=== PATIENT | male | born 1950 | race Caucasian/White ===

== ENCOUNTER 2016-12-10 13:05 | Emergency (ER) | payer BC, OTHER ==
[2016-12-10] MEDS ORDERED: Sodium Chloride 0.9% 2.5 ML Syringe FLUSH PRN (13:17)
[2016-12-10] MEDS ORDERED: Sodium Chloride 0.9% 10 ML Syringe FLUSH PRN (13:17)
--- NOTE | 2016-12-10 13:19 | EDM.PDOC ---
ED HPI GENERAL MEDICAL PROBLEM - General Chief Complaint: Neurological Problem Stated Complaint: SEIZURES Time Seen by Provider: 12/10/16 13:14 - History of Present Illness INITIAL COMMENTS - FREE TEXT/NARRATIVE: HISTORY AND PHYSICAL: History of present illness: Patient is a 66-year-old white male with history of known seizure disorder for which she's had several seizures in the past he's had an extensive workup per history and it was determined that he did not need to be on seizure medicines at this time he states they were not offered to him this was not a choice that he had made he presents today after having 2 generalized tonic-clonic seizure the first seizure last proximate to 3 minutes as did the second 1 it is unclear whether he had a lucid interval. Or not but it does not appear to be with a postictal period he was given Ativan en route due to anxiety per paramedics not for seizure he denies chest pain shortness breath or other concern. Review of systems: As per history of present illness and below otherwise all systems reviewed and negative. Past medical history: As per history of present illness and as reviewed below otherwise noncontributory. Surgical history: As per history of present illness and as reviewed below otherwise noncontributory. Social history: No reported history of drug or alcohol abuse. Family history: As per history of present illness and as reviewed below otherwise noncontributory. Physical exam: HEENT: Atraumatic, normocephalic, pupils reactive, negative for conjunctival pallor or scleral icterus, mucous membranes moist, throat clear, neck supple, nontender, trachea midline. Lungs: Clear to auscultation, breath sounds equal bilaterally, chest nontender. Heart: S1S2, regular, negative for clicks, rubs, or JVD. Abdomen: Soft, nondistended, nontender. Negative for masses or hepatosplenomegaly. Negative for costovertebral tenderness. Pelvis: Stable nontender. Genitourinary: Deferred. Rectal: Deferred. Extremities: Atraumatic, negative for cords or calf pain. Neurovascular unremarkable. Neuro: Awake, alert, oriented. Cranial nerves II through XII unremarkable. Cerebellum unremarkable. Motor and sensory unremarkable throughout. Exam nonfocal. Diagnostics: CBC CMP EKG chest x-ray UA CT brain EtOH or drug screen Therapeutics: Dilantin 1 g IV Impression: #1 seizure with known seizure disorder Definitive disposition and diagnosis as appropriate pending reevaluation and review of above. - Related Data Allergies Allergy/AdvReac Type Severity Reaction Status Date / Time No Known Allergies Allergy Verified 12/10/16 13:14 Home Meds: Home Meds . [No Known Home Meds] 12/10/16 [History] ED ROS GENERAL - Review of Systems Review Of Systems: ROS reveals no pertinent complaints other than HPI. ED EXAM, GENERAL - Physical Exam Exam: See Below (The dictation) Course - Vital Signs Last Recorded V/S: Last Vital Signs Temp 36.2 C 12/10/16 13:23 Pulse 64 12/10/16 13:31 Resp 19 12/10/16 14:16 BP 148/88 H 12/10/16 14:16 Pulse Ox 96 12/10/16 14:16 - Orders/Labs/Meds Orders: Active Orders 24 hr Category Date Time Status Cardiac Monitoring [RC] . DIRECTED Care 12/10/16 13:15 Active EKG Documentation Completion [RC] STAT Care 12/10/16 13:15 Active Head wo Cont [CT] Stat Exams 12/10/16 13:17 Taken DRUG SCREEN, URINE [URCHEM] Stat Lab 12/10/16 13:15 Uncollected UA W/MICROSCOPIC [URIN] Stat Lab 12/10/16 13:15 Uncollected Sodium Chloride 0.9% [Saline Flush] Med 12/10/16 13:17 Active 10 ml FLUSH ASDIRECTED PRN Sodium Chloride 0.9% [Saline Flush] Med 12/10/16 13:17 Active 2.5 ml FLUSH ASDIRECTED PRN Saline Lock Insert [OM.PC] Stat Oth 12/10/16 13:16 Ordered Medication Orders Sodium Chloride (Saline Flush) 10 ml FLUSH ASDIRECTED PRN PRN Reason: Keep Vein Open Sodium Chloride (Saline Flush) 2.5 ml FLUSH ASDIRECTED PRN PRN Reason: Keep Vein Open Labs: Laboratory Tests 12/10/16 12/10/16 Range/Units 13:42 13:42 WBC 10.41 (4.0-11.0) K/uL RBC 4.74 (4.50-5.90) M/uL Hgb 15.0 (13.0-17.0) g/dL Hct 44.7 (38.0-50.0) % MCV 94.3 (80.0-98.0) fL MCH 31.6 (27.0-32.0) pg MCHC 33.6 (31.0-37.0) g/dL RDW Std Deviation 46.2 (28.0-62.0) fl RDW Coeff of Felicia 13 (11.0-15.0) % Plt Count 195 (150-400) K/uL MPV 8.60 (7.40-12.00) fL Neut % (Auto) 79.4 (48.0-80.0) % Lymph % (Auto) 11.0 L (16.0-40.0) % [place] % (Auto) 8.4 (0.0-15.0) % Eos % (Auto) 0.7 (0.0-7.0) % Baso % (Auto) 0.5 (0.0-1.5) % Neut # (Auto) 8.3 H (1.4-5.7) K/uL Lymph # (Auto) 1.2 (0.6-2.4) K/uL [place] # (Auto) 0.9 H (0.0-0.8) K/uL Eos # (Auto) 0.1 (0.0-0.7) K/uL Baso # (Auto) 0.1 (0.0-0.1) K/uL Nucleated RBC % 0.0 /100WBC Nucleated RBCs # 0 K/uL Sodium 141 (136-146) mmol/L Potassium 4.1 (3.5-5.1) mmol/L Chloride 109 (98-110) mmol/L Carbon Dioxide 25 (21-31) mmol/L BUN 17 (6.0-23.0) mg/dL Creatinine 0.9 (0.6-1.5) mg/dL Est Cr Clr Drug Dosing 80.22 mL/min Estimated GFR (MDRD) > 60.0 ml/min Glucose 92 (60-110) mg/dL Calcium 8.8 (8.8-10.8) mg/dL Total Bilirubin 0.5 (0.1-1.5) mg/dL AST 24 (5-40) IU/L ALT 25 (8-54) IU/L Alkaline Phosphatase 74 (40-150) Total Protein 7.3 (6.0-8.0) g/dL Albumin 3.7 (3.4-4.8) g/dL Globulin 3.6 H (2.0-3.5) g/dL Albumin/Globulin Ratio 1.0 L (1.3-2.8) Ethyl Alcohol < 10.0 mg/dL Meds: Medications Generic Name Dose Route Start Last Admin Trade Name Freq PRN Reason Stop Dose Admin Sodium Chloride 10 ml 12/10/16 13:17 Saline Flush FLUSH ASDIRECTED PRN Keep Vein Open Sodium Chloride 2.5 ml 12/10/16 13:17 Saline Flush FLUSH ASDIRECTED PRN Keep Vein Open Discontinued Medications Generic Name Dose Route Start Last Admin Trade Name Freq PRN Reason Stop Dose Admin Phenytoin Sodium 1,000 mg/ 270 mls @ 250 mls/hr 12/10/16 13:17 Sodium Chloride IV 12/10/16 14:21 ONETIME ONE Fosphenytoin Sodium 1,000 mg. 270 mls @ 250 mls/hr 12/10/16 14:00 12/10/16 14 :08 pe/ Sodium Chloride IV 12/10/16 15:04 180 mls/hr ONETIME ONE Administration Departure - Departure Time of Disposition: 15:04 Disposition: Home, Self-Care 01 Condition: Good Clinical Impression: Seizure disorder - Discharge Information Referrals: PCP,None [Primary Care Provider] - Forms: ED Department Discharge Additional Instructions: The following information is given to patients seen in the emergency department who are being discharged to home. This information is to outline your options for follow-up care. We provide all patients seen in our emergency department with a follow-up referral. The need for follow-up, as well as the timing and circumstances, are variable depending upon the specifics of your emergency department visit. If you don't have a primary care physician on staff, we will provide you with a referral. We always advise you to contact your personal physician following an emergency department visit to inform them of the circumstance of the visit and for follow-up with them and/or the need for any referrals to a consulting specialist. The emergency department will also refer you to a specialist when appropriate. This referral assures that you have the opportunity for followup care with a specialist. All of these measure are taken in an effort to provide you with optimal care, which includes your followup. Under all circumstances we always encourage you to contact your private physician who remains a resource for coordinating your care. When calling for followup care, please make the office aware that this follow-up is from your recent emergency room visit. If for any reason you are refused follow-up, please contact the [facility] emergency department at and asked to speak to the emergency department charge nurse. [facility] - [facility] Professional Building [address] [place] [address], [address] [place] [address] Follow-up primary medical doctor and neurology above call to schedule appointment Dilantin as prescribed and return as needed as discussed seizure precautions as discussed - My Orders Last 24 Hours: My Active Orders 12/10/16 13:15 Cardiac Monitoring [RC] . DIRECTED EKG Documentation Completion [RC] STAT DRUG SCREEN, URINE [URCHEM] Stat UA W/MICROSCOPIC [URIN] Stat 12/10/16 13:16 Saline Lock Insert [OM.PC] Stat 12/10/16 13:17 Head wo Cont [CT] Stat Sodium Chloride 0.9% [Saline Flush] 10 ml FLUSH ASDIRECTED PRN Sodium Chloride 0.9% [Saline Flush] 2.5 ml FLUSH ASDIRECTED PRN - Assessment/Plan Last 24 Hours: My Active Orders 12/10/16 13:15 Cardiac Monitoring [RC] . DIRECTED EKG Documentation Completion [RC] STAT DRUG SCREEN, URINE [URCHEM] Stat UA W/MICROSCOPIC [URIN] Stat 12/10/16 13:16 Saline Lock Insert [OM.PC] Stat 12/10/16 13:17 Head wo Cont [CT] Stat Sodium Chloride 0.9% [Saline Flush] 10 ml FLUSH ASDIRECTED PRN Sodium Chloride 0.9% [Saline Flush] 2.5 ml FLUSH ASDIRECTED PRN
[2016-12-10 14:09] LABS: CHLORIDE,CL 109 mmol/L (98-110); SODIUM,NA 141 mmol/L (136-146)
--- NOTE | 2016-12-11 19:30 | CT ---
EXAM DATE: 12/10/16 PATIENT'S AGE: 66 Patient: LAISHA GARCIA Facility: [place], [place] Site . Site : 1950 Study: CT Head WO CONT [id number] 2:03:07 PM Ordering Physician: Lianet Pike Final Report: Indication: Seizure, history of seizures. Technique: Contiguous axial images were obtained with 3 mm collimation from the skullbase to the vertex. Intravenous contrast was not administered. 3D rendering, including image post processing was performed on an independent workstation. 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 There is preservation of the cruz/white matter junction. There is no intracranial hemorrhage. There is no mass on this unenhanced CT scan. The visualized paranasal sinuses and mastoid air cells are normally aerated. Impression: 1. 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 2. No acute intracranial abnormality in. Please note that all CT scans at this facility use dose modulation, iterative reconstruction, and/or weight-based dosing when appropriate to reduce radiation dose to as low as reasonably achievable. Dictated by Ro Baldwin MD @ Dec 10 2016 2:11PM (Electronic Signature) Report Signed by Proxy. [facility]
== END 2016-12-10 16:45 | disposition home or self-care (01) ==
LOC: MW.ED 13:05
DX: G40.909 Epilepsy, unspecified, not intractable, without status epilepticus (principal)
CPT/HCPCS: 36415; 70450; 80053; 85025; 93005; 96365; 96366; 99285; G0480; J7050; Q2009; 99282